=== PATIENT | male | born 1965 | race Caucasian/White ===

== ENCOUNTER 2022-10-29 18:25 | Emergency (ER) | payer OTHER ==
[2022-10-29 21:17] LABS: ANION GAP 13.4 mEq/L (7-13)
[2022-10-29] MEDS ORDERED: methylPREDNISolone Sodium Succinate 125 MG/2 ML SDV IM ONE (23:28)
== END 2022-10-29 23:40 | disposition home or self-care (01) ==
LOC: DL.ED 18:25
DX: R20.2 Paresthesia of skin (principal); I10 Essential (primary) hypertension; Z91.040 Latex allergy status; Z79.899 Other long term (current) drug therapy; Z87.891 Personal history of nicotine dependence
CPT/HCPCS: 36415; 80053; 81003; 83605; 85025; 85379; 85651; 86140; 93970; 96372; 99284; 99285; J2930